=== PATIENT | female | born 1985 | race Caucasian/White ===

== ENCOUNTER 2018-01-09 19:07 | Emergency (ER) | payer BC, OTHER ==
[2018-01-09] MEDS ORDERED: TORAdol 30 mg Injection IM ONE (19:27)
[2018-01-09] MEDS ORDERED: TORAdol 30 mg Injection ONE (19:30)
--- NOTE | 2018-01-09 19:33 | ERPHSYRPT ---
- History of Present Illness Time Seen by Provider: 01/09/18 19:24 Source: patient Exam Limitations: no limitations Patient Subjective Stated Complaint: pt states she has been having back pain for approx 1 week; in the process of remodeling their home and aggravated her back; tonight pain is unbearable; has appt to see her chiropractor tomorrow but cannot wait. Triage Nursing Assessment: pt a&o x3; skin p, w, & d; ambulated to room per self ; family at bedside. Physician History: 32-year-old white female arrives with complaint of pain in her low back midline symptoms since Sunday 4 days ago. Patient states she was remodeling her house in the injured her back has pain in her back midline. No neurologic deficits no urinary symptoms. Past medical history is negative past surgical history negative. Last menstrual period 2 weeks ago. Timing/Duration: day(s) (4 days) Severity: moderate Modifying Factors: Improves With: other (Aleve for pain) Associated Symptoms: other (low back pain midline), No nausea, No vomiting, No abdominal pain, No shortness of breath, No heartburn, No diaphoresis, No cough, No chills, No chest pain, No fever, No headaches, No loss of appetite, No malaise, No rash, No syncope, No seizure, No weakness Allergies/Adverse Reactions: No Known Drug Allergies Allergy (Verified 01/09/18 19:21) Hx Tetanus, Diphtheria Vaccination/Date Given: Yes Hx Influenza Vaccination/Date Given: No Hx Pneumococcal Vaccination/Date Given: Yes Immunizations Up to Date: Yes - Review of Systems Constitutional: No Fever, No Chills Eyes: No Symptoms Ears, Nose, & Throat: No Symptoms Respiratory: No Cough, No Dyspnea Cardiac: No Chest Pain, No Edema, No Syncope Abdominal/Gastrointestinal: No Abdominal Pain, No Nausea, No Vomiting, No Diarrhea Genitourinary Symptoms: No Dysuria Musculoskeletal: Back Pain (Low back pain midline) Skin: No Rash Neurological: No Dizziness, No Focal Weakness, No Sensory Changes Psychological: No Symptoms Endocrine: No Symptoms All Other Systems: Reviewed and Negative - Past Medical History Pertinent Past Medical History: Yes Musculoskeletal History: Other Other Medical History: scoliosis - Past Surgical History Past Surgical History: No - Social History Smoking Status: Current every day smoker How long have you smoked: 13 Exposure to second hand smoke: No Drug Use: none Patient Lives Alone: No - Female History Hx Last Menstrual Period: 2 weeks ago Hx Now: No - Nursing Vital Signs Nursing Vital Signs: Initial Vital Signs Temperature 98.8 F 01/09/18 19:14 Pulse Rate 92 H 01/09/18 19:14 Respiratory Rate 16 01/09/18 19:14 Blood Pressure 118/78 01/09/18 19:14 O2 Sat by Pulse Oximetry 100 01/09/18 19:14 Pain Scale Pain Intensity 9 - Physical Exam General Appearance: mild distress Eye Exam: PERRL/EOMI, eyes nml inspection Ears, Nose, Throat Exam: normal ENT inspection, TMs normal, pharynx normal, moist mucous membranes Neck Exam: normal inspection, non-tender, supple, full range of motion Respiratory Exam: normal breath sounds, lungs clear, No respiratory distress Cardiovascular Exam: regular rate/rhythm, normal heart sounds, normal peripheral pulses Gastrointestinal/Abdomen Exam: soft, normal bowel sounds, No tenderness, No mass Back Exam: other (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 with 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 and movement low lumbar region midline) Extremity Exam: normal inspection, normal range of motion, pelvis stable Neurologic Exam: alert, oriented x 3, cooperative, custom applicator II-XII nml as tested, normal mood/affect, nml cerebellar function, nml station & gait, sensation nml, No motor deficits Skin Exam: normal color, warm, dry, No rash Lymphatic Exam: No adenopathy SpO2 Interpretation: normal (100%) SpO2: 100 Oxygen Delivery: Room Air - Course Nursing assessment & vital signs reviewed: Yes - Radiology Exams L-Spine X-ray Interpretation: Interpreted by me, Negative, No Fracture, No Subluxation ( scoliosis) Ordered Tests: Active Orders 24 hr Category Date Time Status LUMBAR LIMITED (2 OR 3 VIEWS) Stat Exams 01/09/18 19:57 Taken HCG,QUALITATIVE URINE Stat Lab 01/09/18 19:37 Completed UA W/RFX UR CULTURE Stat Lab 01/09/18 19:37 Completed Medication Summary Discontinued Medications Generic Name Dose Route Start Last Admin Trade Name Freq PRN Reason Stop Dose Admin Ketorolac Tromethamine 60 mg 01/09/18 19:27 01/09/18 19:31 Toradol 30 Mg Injection IM 01/09/18 19:28 60 mg STAT ONE Administration Ketorolac Tromethamine Confirm 01/09/18 19:30 Toradol 30 Mg Injection Administered 01/09/18 19:31 Dose 60 mg .ROUTE .STK-MED ONE Orphenadrine Citrate 60 mg 01/09/18 19:57 01/09/18 20:16 Norflex 60 Mg/2 Ml IM 01/09/18 19:58 60 mg STAT ONE Administration Orphenadrine Citrate Confirm 01/09/18 20:14 Norflex 60 Mg/2 Ml Administered 01/09/18 20:15 Dose 60 mg .ROUTE .STK-MED ONE Lab/Rad Data: Laboratory Results 01/09/18 01/09/18 Range/Units 19:37 19:37 Ur Collection Type VOID Urine Color YELLOW (YELLOW) Urine Appearance CLEAR (CLEAR) Urine pH 6.0 (5-6) Ur Specific Tyner 1.015 (1.005-1.025) Urine Protein NEGATIVE (Negative) Urine Ketones SMALL (NEGATIVE) Urine Blood NEGATIVE (0-5) Jose/ul Urine Nitrite NEGATIVE (NEGATIVE) Urine Bilirubin NEGATIVE (NEGATIVE) Urine Urobilinogen NORMAL (0-1) mg/dL Ur Leukocyte Esterase NEGATIVE (NEGATIVE) Urine Culture Reflexed NO (NO) Urine Glucose NEGATIVE (NEGATIVE) mg/dL Urine HCG, Qual NEGATIVE (Negative) Specimen Received 01/09/18 1940 - Progress Progress: improved Progress Note: 01/09/18 20:50 32-year-old white female low back pain for 4-5 days. She states she strained her back working around the house this weekend. Patient with without neurologic deficits she has full range of motion to extremities she is tender with palpation in the low lumbar region midline. Patient is given Toradol 60 mg Norflex 60 mg IM with improvement of her pain not completely pain-free. Patient is planning on seeing a chiropractor tomorrow. X-ray of the lumbar spines positive scoliosis no acute fractures or subluxation. Will plan to discharge patient with Flexeril 10 mg orally 3 times a day for 5 days, give patient a small amount of Austin for pain. Inspect has been queried nothing shows up. Patient without history of substance abuse. - Departure Time of Disposition: 20:52 Departure Disposition: Home Clinical Impression: Back pain Qualifiers: Back pain location: low back pain Chronicity: acute Back pain laterality: midline Sciatica presence: without sciatica Qualified Code(s): M54.5 - Low back pain Lumbar strain Qualifiers: Encounter type: initial encounter Qualified Code(s): S39.012A - Strain of muscle, fascia and tendon of lower back, initial encounter Condition: Fair Critical Care Time: No Referrals: SVETLANA LEACH MD [Primary Care Provider] - Instructions: Low Back Pain (DC) Additional Instructions: Return home. Flexeril as directed. OTC Aleve as directed. Austin 5/325 #12 one orally every 4-6 hours as needed for pain. Follow-up with your chiropractor as originally intended. Return for acute distress or for severe symptoms.. Prescriptions: Cyclobenzaprine HCl [Flexeril] 10 mg PO TID #15 tablet Hydrocodone/Acetaminophen [Austin 5-325 Tablet] 1 tab PO Q4-6HPRN PRN #12 tablet MDD 6 tablets PRN Reason: Pain
[2018-01-09 19:41] LABS: Appearance CLEAR (CLEAR); Bilirubin NEGATIVE (NEGATIVE); Blood NEGATIVE Ery/ul (0-5); Glucose NEGATIVE (NEGATIVE); Ketones SMALL (NEGATIVE); Leukocyte Esterase NEGATIVE (NEGATIVE); Nitrite NEGATIVE (NEGATIVE); Protein,Urine Dip NEGATIVE (Negative); Specific Gravity 1.015 (1.005-1.025); Urobilinogen NORMAL mg/dL (0-1)
[2018-01-09] MEDS ORDERED: Norflex 60 MG/2 ML IM ONE (19:57)
[2018-01-09] MEDS ORDERED: Norflex 60 MG/2 ML ONE (20:14)
[2018-01-09] MEDS ORDERED: NORCO 5/325 MG PO ONE (20:55)
[2018-01-09] MEDS ORDERED: NORCO 5/325 MG ONE (20:58)
[2018-01-09 21:07] VITALS: BP 101/63; PULSE 64; O2SAT 99
--- NOTE | 2018-01-14 07:53 | XRAY ---
Indication: Low back pain 4 days. No known injury. Comparison: None 3 views of the lumbar spine demonstrates 5 lumbar vertebral segments with mild levorotoscoliosis centered at L4. Vertebral body heights and disc spaces maintained. No acute fracture, subluxation, or suspicious bony lesions. Incidental gallbladder gravel/dense sludge better evaluated with ultrasound.
== END 2018-01-09 21:07 | disposition home or self-care (01) ==
LOC: ED 19:07
DX: S39.012A Strain of muscle, fascia and tendon of lower back, initial encounter (principal); M54.5 Low back pain; Y93.E9 Activity, other interior property and clothing maintenance; Y92.009 Unspecified place in unspecified non-institutional (private) residence as the place of occurrence of the external cause
CPT/HCPCS: 72100; 81002; 84703; 96372; 99284; J1885; J2360; A9270-GY

== ENCOUNTER 2021-01-26 15:50 | Emergency (ER) | payer OTHER ==
[2021-01-26] MEDS ORDERED: XYLOCAINE 1% HCL 20 ML MDV IJ ONE (15:51)
--- NOTE | 2021-01-26 16:56 | ERPHSYRPT ---
- History of Present Illness Source: patient Exam Limitations: no limitations Patient Subjective Stated Complaint: possible insect sing or bite to L inner knee Triage Nursing Assessment: pt to ED c/o possible bug bite/sting to inner medial L knee. pt states sunday she noticed what appeared to be a bite and covered it with band aid. today at work she had increase in drainage and redness speading around the wound as well as increase in pain. rates 4/10 now. noted [address] mims wound on L inner knee and redness surrounding site entirely. Physician History: Draining abscess L medial knee w associated cellulitis x2 days. Pt denies fever and h/o staph/abscess formation. Timing/Duration: day(s) (2 days) Quality: painful Severity: mild Location: other (L lateral knnee) Possible Causes: no cause identified Associated Symptoms: change in skin texture, rash, No blisters, No difficulty breathing, No edema, No fever, No flushing, No headache, No hives, No jaundice, No malaise, No nasal congestion, No numbness, No pallor, No paresthesia, No petechiae Allergies/Adverse Reactions: No Known Drug Allergies Allergy (Verified 01/26/21 16:06) Hx Tetanus, Diphtheria Vaccination/Date Given: Yes Hx Influenza Vaccination/Date Given: No Hx Pneumococcal Vaccination/Date Given: Yes Immunizations Up to Date: Yes Travel Risk - International Travel Have you traveled outside of the country in past 3 weeks: No - Coronavirus Screening Are you exhibiting any of the following symptoms?: No Close contact with a COVID-19 positive Pt in past 14-21 Days: No - Vaccine Status Have you recieved a Covid-19 vaccination: Yes 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: [employer] - Vaccination Dates Date of 2cond Vaccination (if applicable): december - Review of Systems Constitutional: No Symptoms Eyes: No Symptoms Ears, Nose, & Throat: No Symptoms Respiratory: No Symptoms Cardiac: No Symptoms Abdominal/Gastrointestinal: No Symptoms Genitourinary Symptoms: No Symptoms Musculoskeletal: No Symptoms Skin: Cellulitis Neurological: No Symptoms Psychological: No Symptoms Endocrine: No Symptoms Hematologic/Lymphatic: No Symptoms Immunological/Allergic: No Symptoms - Past Medical History Pertinent Past Medical History: Yes Musculoskeletal History: Other Other Medical History: scoliosis - Past Surgical History Past Surgical History: No - Social History Smoking Status: Current every day smoker How long have you smoked: 13 Exposure to second hand smoke: No Drug Use: none Patient Lives Alone: No Significant Family History: no pertinent family hx - Female History Hx Last Menstrual Period: 12/29/20 Hx Now: No - Nursing Vital Signs Nursing Vital Signs: Initial Vital Signs Temperature 97.6 F 01/26/21 15:58 Pulse Rate 89 01/26/21 15:58 Respiratory Rate 18 01/26/21 15:58 Blood Pressure 139/63 01/26/21 15:58 O2 Sat by Pulse Oximetry 98 01/26/21 15:58 Pain Scale Pain Intensity 2 WNL - Physical Exam General Appearance: no apparent distress Eye Exam: PERRL/EOMI, eyes nml inspection Ears, Nose, Throat Exam: normal ENT inspection, TMs normal, pharynx normal, moist mucous membranes Neck Exam: normal inspection, non-tender, supple, full range of motion Respiratory Exam: normal breath sounds, lungs clear, airway intact, No chest tenderness, No respiratory distress Cardiovascular Exam: regular rate/rhythm, normal heart sounds, No murmur Gastrointestinal/Abdomen Exam: soft, normal bowel sounds, No tenderness Back Exam: normal inspection, normal range of motion, No CVA tenderness, No vertebral tenderness Extremity Exam: other (Draining abscess L medial knee w associated cellulitis) Neurologic Exam: alert, oriented x 3, cooperative, custom ski maker II-XII nml as tested, normal mood/affect, nml cerebellar function, nml station & gait, sensation nml, No motor deficits, No sensory deficit Skin Exam: other (Cellulitis associated w draining abscess) Lymphatic Exam: No adenopathy SpO2 Interpretation: normal SpO2: 98 O2 Delivery: Room Air Procedures - Incision and Drainage Site: L medial knee Anesthesia: 1% Lidocaine cc's of anesthesia: 5 Blade Size: 11 I & D Procedure: betadine prep Results: other (Minimal pus at best) - Course Nursing assessment & vital signs reviewed: Yes Ordered Tests: Active Orders 24 hr Category Date Time Status CBC W DIFF Stat Lab 01/26/21 16:55 Completed Lactic Acid Stat Lab 01/26/21 16:55 Completed Medication Summary Discontinued Medications Generic Name Dose Route Start Last Admin Trade Name Freq PRN Reason Stop Dose Admin Ceftriaxone Sodium 1,000 mg 01/26/21 17:43 01/26/21 17:46 Rocephin 1000 Mg Inj IM 01/26/21 17:44 1,000 mg STAT ONE Administration Ceftriaxone Sodium Confirm 01/26/21 17:44 Rocephin 1000 Mg Inj Administered 01/26/21 17:45 Dose 1,000 mg .ROUTE .STK-MED ONE Doxycycline Hyclate 100 mg 01/26/21 17:47 01/26/21 17:48 Vibramycin 100 Mg PO 01/26/21 17:48 100 mg STAT ONE Administration Doxycycline Hyclate Confirm 01/26/21 17:47 Vibramycin 100 Mg Administered 01/26/21 17:48 Dose 100 mg .ROUTE .STK-MED ONE Lab/Rad Data: Laboratory Result Diagrams 01/26/21 16:55 Laboratory Results 01/26/21 01/26/21 Range/Units 16:55 16:55 WBC 9.3 (4.0-10.5) K/mm3 RBC 4.09 L (4.1-5.4) M/mm3 Hgb 13.1 (12.0-16.0) gm/dl Hct 40.6 (35-47) % MCV 99.3 (78-100) fl MCH 32.0 (26-32) pg MCHC 32.3 (32-36) g/dl RDW 12.8 (11.5-14.0) % Plt Count 188 (150-450) K/mm3 MPV 10.1 (7.5-11.0) fl Gran % 67.9 H (36.0-66.0) % Eos # (Auto) 0.13 (0-0.5) Absolute Lymphs (auto) 2.16 (1.0-4.6) Absolute Monos (auto) 0.68 (0.0-1.3) Lymphocytes % 23.2 L (24.0-44.0) % Monocytes % 7.3 (0.0-12.0) % Eosinophils % 1.4 (0.00-5.0) % Basophils % 0.2 (0.0-0.4) % Absolute Granulocytes 6.31 (1.4-6.9) Basophils # 0.02 (0-0.4) Lactic Acid 1.0 (0.4-2.0) - Progress Progress: improved Progress Note: 01/26/21 17:44 1gm IM Rocephin Pt refused pain meds 01/26/21 17:47 100mg po Doxycycline Counseled pt/family regarding: lab results, diagnosis, need for follow-up - Departure Departure Disposition: Home Clinical Impression: Abscess, Cellulitis Condition: Stable Critical Care Time: No Referrals: DOCTOR,NO FAMILY [Primary Care Provider] - Instructions: Abscess Incision and Drainage (DC), Cellulitis (Skin Infection), Adult (DC) Additional Instructions: Elevate leg Start Doxycycline AM Return to ER for increased swelling/redness/pain/temperature greater than 100.5 Prescriptions: Doxycycline Monohydrate 100 mg PO BID #20 tablet
[2021-01-26 17:00] LABS: Absolute Neutrophil Ct (ANC) 6.31 (1.4-6.9); BASOPHIL % 0.2 % (0.0-0.4); Basophil (Absolute #) 0.02 (0-0.4); Eosinophil % 1.4 % (0.00-5.0); Eosinophil (Absolute #) 0.13 (0-0.5); Hematocrit 40.6 % (35-47); Hemoglobin 13.1 gm/dl (12.0-16.0); Lymphocyte (Absolute #) 2.16 (1.0-4.6); Lymphocytes % 23.2 % (24.0-44.0); Mean Cell Volume 99.3 fl (78-100); Mean Corpuscular Hgb Concent. 32.3 g/dl (32-36); Mean Platelet Volume 10.1 fl (7.5-11.0); Monocyte (Absolute #) 0.68 (0.0-1.3); Monocytes % 7.3 % (0.0-12.0); Neutrophil % 67.9 % (36.0-66.0); Platelet Count 188 K/mm3 (150-450); Red Blood Count 4.09 M/mm3 (4.1-5.4); Red Cell Distribution Width 12.8 % (11.5-14.0); White Blood Count 9.3 K/mm3 (4.0-10.5)
[2021-01-26] MEDS ORDERED: Rocephin 1000 MG INJ IM ONE (17:43)
[2021-01-26] MEDS ORDERED: Rocephin 1000 MG INJ ONE (17:44)
[2021-01-26] MEDS ORDERED: Vibramycin 100 MG ONE (17:47)
[2021-01-26] MEDS ORDERED: Vibramycin 100 MG PO ONE (17:47)
[2021-01-26 18:01] VITALS: BP 123/78; PULSE 85
[2021-01-26 18:16] VITALS: O2SAT 98
== END 2021-01-26 18:29 | disposition home or self-care (01) ==
LOC: ED 15:50
DX: L02.416 Cutaneous abscess of left lower limb (principal); L03.116 Cellulitis of left lower limb
CPT/HCPCS: 36415; 83605; 85025; 96372; 99284; J0696; A9270-GY

== ENCOUNTER 2021-12-25 06:06 | Emergency (ER) | payer OTHER ==
[2021-12-25 06:44] LABS: Absolute Neutrophil Ct (ANC) 3.74 x10^3/uL (1.4-6.9); Basophil (Absolute #) 0.04 x10^3/uL (0-0.4); Eosinophil % 0.6 % (0.00-5.0); Eosinophil (Absolute #) 0.05 x10^3/uL (0-0.5); Hematocrit 41.6 % (35-47); Hemoglobin 13.9 g/dL (12.0-16.0); Lymphocyte (Absolute #) 3.91 x10^3/uL (1.0-4.6); Lymphocytes % 47.6 % (24.0-44.0); Mean Cell Volume 97.2 fL (78-100); Mean Corpuscular Hemoglobin 32.5 pg (26-32); Mean Corpuscular Hgb Concent. 33.4 g/dL (32-36); Mean Platelet Volume 9.9 fL (7.5-11.0); Monocyte (Absolute #) 0.45 x10^3/uL (0.0-1.3); Monocytes % 5.5 % (0.0-12.0); Neutrophil % 45.4 % (36.0-66.0); Platelet Count 196 x10^3/uL (150-450); Red Blood Count 4.28 x10^6/uL (4.1-5.4); Red Cell Distribution Width 12.1 % (11.5-14.0); White Blood Count 8.2 x10^3/uL (4.0-10.5)
[2021-12-25 07:02] LABS: ALBUMIN 4.5 g/dL (3.5-5.0); ALKALINE PHOSPHATASE 53 U/L (38-126); ANION GAP 14.3 MEQ/L (5-15); BLOOD UREA NITROGEN 6 mg/dL (7-17); CHLORIDE 104 mmol/L (98-107); Calcium 8.4 mg/dL (8.4-10.2); Carbon Dioxide 19 mmol/L (22-30); Creatinine 1 0.61 mg/dL (0.52-1.04); EST GLOMERULAR FILTRATION RATE > 60.0 ML/MIN; ETHYL ALCOHOL 265 mg/dL (0-10); Glucose 95 mg/dL (74-106); Potassium 3.5 mmol/L (3.5-5.1); SGOT/AST 21 U/L (14-36); SGPT/ALT 12 U/L (0-35); SODIUM 133 mmol/L (137-145)
[2021-12-25 07:05] LABS: Urine Cultured Indicated? NO
[2021-12-25 07:08] LABS: Appearance CLEAR (CLEAR); Bilirubin NEGATIVE (NEGATIVE); Glucose NEGATIVE (NEGATIVE)
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
[2021-12-25 07:09] LABS: Ketones NEGATIVE (NEGATIVE); Nitrite NEGATIVE (NEGATIVE); Ph 5.5 (5-6); Protein,Urine Dip NEGATIVE (Negative); RBC NEGATIVE Ery/ul (0-5); Specific Gravity <=1.005 (1.005-1.025); Urobilinogen 0.2 mg/dL (0-1)
[2021-12-25 07:10] LABS: Dipstick done @ ? MAIN LAB
[2021-12-25 07:13] LABS: Amphetamine,Urine NEGATIVE (NEGATIVE); Barbiturate,Urine NEGATIVE (NEGATIVE); Benzodiazepine,Urine NEGATIVE (NEGATIVE); Cocaine,Urine NEGATIVE (NEGATIVE); Methadone,Urine NEGATIVE (NEGATIVE); Opiate,Urine NEGATIVE (NEGATIVE); PCP,Urine NEGATIVE (NEGATIVE); THC,Urine NEGATIVE (NEGATIVE)
[2021-12-25 07:23] VITALS: BP 118/79; PULSE 83; O2SAT 98
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
== END 2021-12-25 07:51 ==
LOC: ED 06:06
DX: S09.90XA Unspecified injury of head, initial encounter (principal); V57.5XXA Driver of pick-up truck or van injured in collision with fixed or stationary object in traffic accident, initial encounter; F10.129 Alcohol abuse with intoxication, unspecified; Y90.8 Blood alcohol level of 240 mg/100 ml or more; Z72.0 Tobacco use
CPT/HCPCS: 36415; 70450; 71045; 72125; 80053; 80307; 81015; 81025; 85025; 99283; G0480